=== PATIENT | female | born 1975 | race Caucasian/White ===

== ENCOUNTER 2023-07-05 14:26 | Outpatient (REF) | payer OTHER, SELFPAY ==
[2023-07-05 17:44] LABS: MANUAL DIFF FLAG NO
[2023-07-05 17:48] LABS: Basophils Percent Auto 0.4 % (0-2); Eosinophils Absolute Auto 0.1 X10*3/uL (0.0-0.4); Eosinophils Percent Auto 1.1 % (0-4); Hematocrit 36.9 % (37.0-47.0); Hemoglobin 12.1 g/dl (12.0-16.0); Imm Gran Abs Auto 0.01 X10*3/uL (0.00-0.03); Imm Gran Pct Auto 0.1 % (0.0-0.4); Lymphocytes Absolute Auto 2.5 X10*3/uL (1.2-4.9); Lymphocytes Percent Auto 34.4 % (20-40); Mean Corpuscular HGB Conc 32.8 g/dl (31.0-35.0); Mean Corpuscular Hemoglobin 30.3 pg (27.0-33.0); Mean Corpuscular Volume 92.3 fL (80.0-98.0); Mean Platelet Volume 9.5 fL (9.4-12.3); Monocytes Absolute Auto 0.6 X10*3/uL (0.1-1.2); Monocytes Percent Auto 8.5 % (2-11); Neutrophils Percent Auto 55.5 % (45-73); Platelet Count 250 X10*3/uL (160-400); Red Cell Distribution Width 12.7 % (11.0-16.0); White Blood Count 7.2 X10*3/uL (4.8-10.8)
[2023-07-05 18:02] LABS: Alanine Aminotransferase 14 U/L (0-31); Albumin Level 4.2 g/dL (3.5-5.0); Alkaline Phosphatase 69 U/L (39-117); Anion Gap 15 (12-20); Aspartate Amino Transferase 17 U/L (5-31); Bilirubin Direct < 0.2 mg/dL (0.0-0.5); Bilirubin Total 0.2 mg/dL (0.0-1.0); Blood Urea Nitrogen 9 mg/dL (9-16); Calcium 9.7 mg/dL (8.4-10.2); Carbon Dioxide 24 mmol/L (22-29); Chloride 104 mmol/L (96-108); Estimated Glomerular Filt Rate > 60; Glucose Random 69 mg/dL (60-115); Potassium 3.5 mmol/L (3.3-5.1); Sodium 139 mmol/L (135-145); Total Protein 7.5 g/dL (6.5-8.0)
[2023-07-06 07:31] LABS: HBS Num1 > 1000.00 mIU/mL (0-7.99); Hepatitis B Core Antibody Nonreactive (Nonreactive); ~Hepatitis B Surface Antibody REACTIVE (Nonreactive)
[2023-07-08 20:13] LABS: TS Negative Control Passed; TS Panel A 0; TS Panel B 0; TS Positive Control Passed; TSpotTB Negative (Negative)
[2023-07-09 18:04] LABS: Mumps Virus IgG Antibody <9.00 AU/mL; Rubeola IgG (Measles) <13.50 AU/mL
== END 2023-07-05 14:27 | disposition home or self-care (01) ==
LOC: HO.CHCLDS 14:26
PROVIDERS: Visit Provider Internal Medicine
DX: Z00.00 Encounter for general adult medical examination without abnormal findings (principal); H92.02 Otalgia, left ear
CPT/HCPCS: 36415; 80048; 80076; 85025; 86481; 86704; 86706; 86735; 86762; 86765; 86787

== ENCOUNTER 2023-08-06 11:42 | Outpatient (REF) | payer OTHER, SELFPAY ==
[2023-08-07 12:48] LABS: Rubella IgG Antibody 6.08 Index; Rubeola IgG (Measles) <13.50 AU/mL
== END 2023-08-06 11:43 | disposition home or self-care (01) ==
LOC: HO.CHCLDS 11:42
PROVIDERS: Visit Provider Internal Medicine
DX: Z00.00 Encounter for general adult medical examination without abnormal findings (principal)
CPT/HCPCS: 36415; 86735; 86762; 86765

== ENCOUNTER 2024-07-18 15:48 | Outpatient (REF) | payer OTHER, SELFPAY ==
[2024-07-18 17:55] LABS: MANUAL DIFF FLAG NO
[2024-07-18 17:58] LABS: Basophils Absolute Auto 0.1 X10*3/uL (0.0-0.2); Basophils Percent Auto 0.6 % (0-2); Eosinophils Absolute Auto 0.1 X10*3/uL (0.0-0.4); Eosinophils Percent Auto 0.9 % (0-4); Hematocrit 38.1 % (37.0-47.0); Hemoglobin 12.6 g/dl (12.0-16.0); Imm Gran Abs Auto 0.04 X10*3/uL (0.00-0.03); Imm Gran Pct Auto 0.4 % (0.0-0.4); Lymphocytes Absolute Auto 3.4 X10*3/uL (1.2-4.9); Lymphocytes Percent Auto 30.6 % (20-40); Mean Corpuscular HGB Conc 33.1 g/dl (31.0-35.0); Mean Corpuscular Hemoglobin 30.2 pg (27.0-33.0); Mean Corpuscular Volume 91.4 fL (80.0-98.0); Mean Platelet Volume 9.6 fL (9.4-12.3); Monocytes Absolute Auto 0.7 X10*3/uL (0.1-1.2); Monocytes Percent Auto 6.4 % (2-11); Neutrophils Absolute Auto 6.8 x10*3/uL (2.0-8.3); Neutrophils Percent Auto 61.1 % (45-73); Platelet Count 293 X10*3/uL (160-400); Red Blood Count 4.17 X10*6/uL (4.20-5.50); Red Cell Distribution Width 12.6 % (11.0-16.0); White Blood Count 11.2 X10*3/uL (4.8-10.8)
[2024-07-18 18:31] LABS: Alanine Aminotransferase 15 U/L (0-31); Albumin Level 4.2 g/dL (3.5-5.0); Alkaline Phosphatase 106 U/L (39-117); Anion Gap 13 (12-20); Aspartate Amino Transferase 38 U/L (5-31); Bilirubin Total 0.2 mg/dL (0.0-1.0); Blood Urea Nitrogen 12 mg/dL (9-16); Calcium 9.1 mg/dL (8.4-10.2); Carbon Dioxide 25 mmol/L (22-29); Chloride 106 mmol/L (96-108); Cholesterol 216 mg/dL (<200); Estimated Glomerular Filt Rate > 60; Glucose Random 78 mg/dL (60-115); HDL Cholesterol 55 mg/dL (>40); LDL Cholesterol Calculated 136 mg/dL (<100); Potassium 3.6 mmol/L (3.3-5.1); Sodium 140 mmol/L (135-145); Total Protein 7.7 g/dL (6.5-8.0); Triglycerides 129 mg/dL (<150)
[2024-07-18 18:46] LABS: TSH reflex Free T4 1.81 uIU/mL (0.32-4.0)
[2024-07-19 09:07] LABS: HIV AB/AG Nonreactive (Nonreactive); HIV Num 1 0.05 S/CO (0.00-0.99); ~HepC Num1 0.11 S/CO (0.00-0.79); ~Hepatitis C Antibody Nonreactive (Nonreactive)
[2024-07-21 11:29] LABS: TS Negative Control Passed; TS Panel A 0; TS Panel B 0; TS Positive Control Passed; TSpotTB Negative (Negative)
== END 2024-07-18 15:49 | disposition home or self-care (01) ==
LOC: CF 15:48
PROVIDERS: Visit Provider Internal Medicine
DX: Z00.00 Encounter for general adult medical examination without abnormal findings (principal); Z11.1 Encounter for screening for respiratory tuberculosis; Z13.6 Encounter for screening for cardiovascular disorders
CPT/HCPCS: 36415; 80053; 80061; 84443; 85025; 86481; 86803; 87389

== ENCOUNTER 2024-09-02 13:56 | Outpatient (REF) | payer OTHER, SELFPAY ==
[2024-09-03 11:13] LABS: HPV 16,18/45 See PAP report
== END 2024-09-02 13:57 | disposition home or self-care (01) ==
LOC: HO.HHCLNP 13:56
PROVIDERS: Visit Provider Family Medicine
DX: Z12.4 Encounter for screening for malignant neoplasm of cervix (principal); Z11.51 Encounter for screening for human papillomavirus (HPV)
CPT/HCPCS: 87624; 88175

== ENCOUNTER 2025-07-24 10:20 | Outpatient (REF) | payer OTHER, SELFPAY ==
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
--- OUTSIDE RECORDS SUMMARY | 2025-07-24 12:10 | XMS_ITS | Encounter Summary ---
Author Organization [employer] Address [address] [facility] [address] [place] [address] Care Team Providers Care Senior Test Engineer Name Role Phone Zakiya Kamara MD Primary Care Provider [phone] Encounter Details Date Type Department Care Team (Latest Contact Info) Description 07/24/2025 Travel Social History Tobacco Use Types Packs/Day Years [...] AM EDT documented as of this encounter Functional Status * Over the past 2 weeks, how often have you been bothered by any of the following problems? Question Answer Date of Assessment Author Patient Health Questionnaire -2 Score 4 07/24/2025 9:46 AM Katherine Michaels MA * Little interest or pleasure in doing things Answer Date of Assessment Author More than half the days 07/24/2025 9:46 AM Temitope Crawford MA * Feeling down, depressed, or hopeless Answer Date of Assessment Author More than half the days 07/24/2025 9:46 AM Temitope Crawford MA * Trouble falling or staying asleep, or sleeping too much Answer Date of Assessment Author More than half the days 07/24/2025 9:46 AM Temitope Crawford MA * Feeling tired or having little energy Answer Date of Assessment Author More than half the days 07/24/2025 9:46 AM Temitope Crawford MA * Poor appetite or overeating Answer Date of Assessment Author More than half the days 07/24/2025 9:46 AM Temitope Crawford MA * Feeling bad about yourself - or that you are a failure or have let yourself or your family down Answer Date of Assessment Author More than half the days 07/24/2025 9:46 AM Temitope Crawford MA * Trouble concentrating on things, such [...] Author Not at all 07/24/2025 9:46 AM LUIS ARMANDO [employer] Temitope valencia MA * Thoughts that you would be better off or hurting yourself in some way Answer Date of Assessment Author Not at all 07/24/2025 9:46 AM LUIS ARMANDO [place]-Temitope Navas MA * Patient Health Questionnaire-9 Score Answer Date of Assessment Author 14 07/24/2025 9:46 AM EST [place] Temitope valencia MA * How difficult have these problems [...] MA Trouble relaxing 2 07/24/2025 9:47 AM EST Temitope Nuñez MA Being so restless that it is hard to sit still 2 07/24/2025 9:47 AM Katherine Michaels MA Becoming easily annoyed or irritable 2 07/24/2025 9:47 AM Katherine Michaels MA Feeling afraid as if somethi ng awful might happen 2 07/24/2025 9:47 AM Katherine Michaels MA SONAM-7 Total Score 14 07/24/2025 9:47 AM Temitope Michaels MA documented as of this encounter Plan of Treatment Upcoming Encounters Date Type Department Care Team (Late st Contact Info) Description 08/24/2025 9:00 AM EST Office Visit [facility] MED & PEDS [address] [place] [address] Zakiya Kamara MD [address] [place] [address] documented as of this encounter Visit Diagnoses Not on filedocumented in this encounter Additional Health Concerns Assessment Noted Time PHQ-9 Depression Total Score: 14 025 9:46 AM EST documented as of this encounter Care Teams Senior Test Engineer Relationship Specialty Start Date End Date Zakiya Kamara MD [address] [place] [address] PCP - General Internal Medicine 01/11/21 documented as of this encounter
--- OUTSIDE RECORDS SUMMARY | 2025-07-24 12:10 | XMS_ITS | Clinical Summary ---
Author Organization [employer] Address [address] [facility] 7t [place] [address] Care Team Providers Care Flag Car Driver Name Role Phone Zakiya Kamara MD Primary Care Provider [phone] Allergies No known active allergies Medications clotrimazole (Lotrimin) 1 % cream Apply topically 2 times daily. 60 g 4 Active venlafaxine XR (Effexor XR) 37.5 MG 24 hr capsuleIndicati ons:Anxiety and depression Take 1 capsule (37.5 mg) by mouth Once per day. Do not crush or chew. 30 capsule 11 5 07/24/20 26 Active melatonin 5 MG tabletIndicatio ns:Anxiety and depression Take 1 tablet (5 mg) by mouth if needed at bedtime (for sleep). 30 tablet 5 Active Active Problems Problem Noted Date Diagnosed Date Candidal intertrigo 09/02/2024 Assessment & Plan (09/02/2024 9:39 AM EST): Prescribing Lotrimin for Sx. Relevant Medications Clotrimazole (Lotrimin) 1% cream Cervical cancer screening 09/02/2024 Assessment & Plan (09/02/2024 9:38 AM EST): 49 y.o. here for cervical cancer screening. Will continue monitoring following ASCCP guidelines. Encounters Date Type Department Care Team Description 07/24/2025 9:15 AM EST Office Visit [facility] MED & PEDS [address] [place] [address] Lakisha Santoro CNP Encounter for physical examination (Primary Dx); Encounter for screening mammogram for malignant neoplasm of breast; Anxiety and depression; Screening for colon cancer; Dietary counseling; Exercise counseling; Class 1 obesity due to excess calories without serious comorbidity with body mass index (BMI) of 32.0 to 32.9 in adult 07/24/2025 Travel 07/21/2025 Telephone [facility] MED & PEDS [address] [place] [address] Zakiya Kamara MD chart prep 07/21/2025 Telephone [facility] MED & PEDS [address] [place] [address] Zakiya Kamara MD chart prep 07/16/2025 Patient Outreach [facility] MEDICINE [address] [place], [place] [phone] Zakiya Kamara MD Pre-visit Planning (SDOH screening negative and Tobacco screening negative) 06/11/2025 Telephone [facility] MED & PEDS [address] [place] [address] Zakiya Kamara MD ER Follow-up from Last 3 Months Immunizations Immunization Administration Dates Next Due Hep B, adult 12/17/2017,09/24/2017,08/27/2017 Influenza Injectable Quadriv alant Preservative Free IIV4 MDCK 06/28/2018 Influenza injectable quadriv alent preservative free 07/05/2023,07/13/2021,07/10/2020,2018,07/18/2018 Influenza, Recombinant, inje ctable, preservative free 06/19/2025 Influenza, seasonal, injecta ble, preservative free 07/02/2024,08/16/2017 MMR 08/16/2023,,01/25/2017,2016 Td (adult), unspecified 10/20/2004 Tdap 09/18/2017,06/22/2010 Family History Medical History Relation Name Comments Atrial fibrillation Mother Relation Name Status Comments Mother Social History Tobacco Use Types Packs/Day Years Used Date Smoking Tobacco: Never Smokeless Tobacco: Never Tobacco Cessation:Counseling Given: Not Answered Alcohol Use Standard Drinks/Week Comments Yes 0 [...] Don't know 07/17/2022 10 :18 AM EDT Last Filed Vital Signs Vital Sign Reading [...] Mass Index 32.84 07/24/2025 9:13 AM EST Plan of Treatment Upcoming Encounters Date Type Department Care Team ([facility] st Contact Info) Description 08/24/2025 9:00 AM EST Office Visit [facility] CHC MED & PEDS [address] [place] [address] Zakiya Kamara MD [address] [place] [address] Health Maintenance Due Date Last Done Comments CT Colonography 1973 Colonoscopy 1973 Colorectal Cancer Screening 1973 FIT DNA/Cologuard 1973 FIT 1973 FOBT 1973 Sigmoidoscopy 1973 Family Planning (PISQ) 02/09/1988 Mammogram 2013 Pneumococcal Vaccine: 50+ Years (1 of 1 - PCV) 2023 COVID-19 Vaccine (4 - season) 2025 08/01/2021, 10/18/2020, 09/20/2020 Tobacco Screening 09/02/2025 09/02/2024 Zoster Vaccines (1 of 2) 09/02/2025 Pos tponed from 2023 (Patient Refused) Depression Monitoring 01/21/2026 07/24/2025, 025 SDOH Screening 07/16/2026 07/16/2025 Alcohol/Substance Use Screening 07/24/2026 07/24/2025 Disability Screening 07/24/2026 07/24/2025 DTaP/Tdap/Td Vaccines (3 - Td or Tdap) 09/18/2027 09/18/2017, 06/22/2010, 10/20/2004 Lipid Panel 07/18/2029 07/18/2024 Cervical Cancer Screening 09/02/2029 HPV/Cotest 09/02/2029 09/02/2024, 01/22/2018 Pap Smear 09/02/2029 09/02/2024 RSV Patients and Patients Aged 60 years or older (1 - 1-dose 75+ series) 02/09/2048 Hepatitis B Vaccines Completed 12/17/2017, 09/24/2017, 08/27/2017 HIV Screening Completed 07/18/2024 Hepatitis C Screening Completed 07/18/2024 Influenza Vaccine Completed 06/19/2025, , 07/05/2023, Additional history exists HIB Vaccines Aged Out No longer eligi ble based on patient's age to complete this topic HPV Vaccines Aged Out No longer eligi ble based on patient's age to complete this topic Hepatitis A Vaccines Aged Out No long er eligible based on patient's age to complete this topic IPV Vaccines Aged Out No longer eligi ble based on patient's age to complete this topic Meningococcal B Vaccine Aged Out No l onger eligible based on patient's age to complete this topic Meningococcal Vaccine Aged Out No erik swapna eligible based on patient's age to complete this topic RSV under 20 months Aged Out No longe r eligible based on patient's age to complete this topic Rotavirus Vaccines Aged Out No longer eligible based on patient's age to complete this topic Procedures Procedure Name Priority Date/Time Associated Diagnosis Comments PAP SMEAR Routine 09/02/2024 9:36 AM EST Cervical cancer screening HPV MRNA E6/E7 REFLEX TO HPV 16, 18/45 Routine 09/02/2024 12:00 AM EST LIPID PANEL, STANDARD Routine 07/18/2024 3:49 PM EDT Annual physical exam HEPATITIS C AB W/REFL TO HCV RNA, QN, PCR Routine 07/18/2024 3:45 PM EDT Annual physical exam HIV 1/2 ANTIGEN/ANTIBODY, FOURTH GENERATION W/RFL Routine 07/18/2024 3:45 PM EDT Annual physical exam from Last 3 Months or Most Recently Relevant to Health Maintenance Results * Pap Smear (09/02/2024 9:36 AM EST) Swab Cervix uteri structure / Unknown 09/02/2024 9:36 AM EST 09/03/2024 9:30 AM EST [facility] - 09/08/2024 9:41 AM EST ----- ------- Name: Michelle Garcia Age/Sex: 49/F : 1975 Unit#: [id number] Attend Dr: Montserrat Way MD Re09/02/24 Status: DEP [facility] ----- ------- SPEC : [id number] RECD: 09/03/24 STATUS: HANNA ENGLAND NUM: [id number] GIANCARLO: 09/02/[address] [facility] [address]: Montserrat Way MD ENTERED: 09/03/24-1011 SP TYPE: Pap Smr OT DR: ORDERED: Pap Smear Interpretation Satisfactory for evaluation. Negative for intraepithelial lesion or malignancy. No endocervical cells seen. HPV High Risk: Negative HPV Genotyping 16: Negative HPV Genotyping 18: Negative Clinical Information LMP: Postmenopausal Previous PAP test: 2018, WNL Material Received ThinPrep-Cervical ----- ------- Signed (signature on file) ARTUR Cardoza (ASCP) 09/08/24 0941 ----- ------- END OF REPORT Montserrat Way MD LAB CYTOLOGY ORDERABLES Final Result [facility] [address] [place], [place] [phone] * HPV mRNA E6/E7 w/Reflex to HPV Genotypes 16, 18/45 (09/02/2024 12:00 AM EST) Historical Provider LAB CYTOLOGY ORDERABLES F inal Result * (ABNORMAL) Lipid Panel, Standard (07/18/2024 3:49 PM EDT) Triglycerides 129 <150 mg/dL [facility] Comment:Desirable Triglyceri de: less than 150 mg/dLBorderline High Triglyceride 150-199 mg/dLHigh Triglyceride: 200-499 mg/dLVery High Triglyceride: greater than or equal to 5OO mg/dL Cholesterol 216(H) <200 mg/dL [facility] Comment:Desirable Cholestero l: less than 200 mg/dLBorderline High Cholesterol: 200-239 mg/dLHigh Cholesterol: greater than 239 mg/dL LDL Cholesterol Calculated 136(H) <100 mg/dL [facility] Comment:Desirable LDL: less than 100 mg/dLNear Optimal/Above Optimal LDL: 110- 129 mg/dLBorderline High LDL: 130-159 mg/dLHigh LDL: 160-189 mg/dLVery High LDL: greater than or equal to 190 mg/dL HDL Cholesterol 55 >40 mg/dL [facility] Comment:Desirable HDL: great er than 40 mg/dL Note: This HDL assay may give artificially low results in patients with liver disease. Blood Venous blood specimen / Unknown 07/18/2024 3:49 PM EDT 07/18/2024 5:52 PM EDT us Zakiya Kamara MD LAB BLOOD ORDERABLES Final Result Performing Organization Address [facility]/ZIP Co de Phone Number [facility] [address] [place] [address] [phone] * Hepatitis C Antibody with Reflex to HCV, RNA, Quantitative, Real-Time PCR (07/18/2024 3:45 PM EDT) Hepatitis C Antibody Nonreactive Nonreactive [facility] Comment:Antibodies to HCV no t detected; does not exclude early acuteHCV infection. Blood Venous blood specimen / Unknown 07/18/2024 3:45 PM EDT 07/18/2024 5:52 PM EDT Zakiya Kamara MD LAB BLOOD ORDERABLES Final Result Performing Organization Address [facility] Co de Phone Number [facility] [address] [place] [phone] * HIV-1/2 Antigen and Antibodies, Fourth Generation, with Reflexes (07/18/2024 3:45 PM EDT) Pathologist [facility] HIV AB/AG Nonreactive Nonreactive [facility] Comment:HIV-1 p24 Ag and/or HIV-1/HIV-2 Ab not detected.A test result that is nonreactive does not exclude thepossibility of exposure to or infection with HIV-1 and/orHIV-2. Nonreactive results in this assay for individualswith prior exposure to HIV-1 and/or HIV-2 may be due toantigen and antibody levels that are below the limit ofdetection of this assay.The [facility] HIV Ag/Ab Combo assay result andsupplemental assay results should be interpreted inconjunction with the patient's clinical presentation,history and other laboratory results. If the results areinconsistent with clinical evidence, additional testing issuggested to confirm the result. Blood Venous blood specimen / Unknown 07/18/2024 3:45 PM EDT 07/18/2024 5:52 PM EDT Zakiya Kamara MD LAB BLOOD ORDERABLES Final Result [facility] [address] [place] [phone] [phone] from Last 3 Months or Most Recently Relevant to Health Maintenance Insurance [facility] , [address] [place] [address] Care Teams Flag Car Driver Relationship Specialty Start Date End Date Zakiya Kamara MD [address] [place] [phone] PCP - General Internal Medicine 01/11/21
--- OUTSIDE RECORDS SUMMARY | 2025-07-24 12:10 | XMS_ITS | Encounter Summary ---
Author Organization [employer] Address [address] [facility] 7 [place] [address] Care Team Providers Care Commercial Airplane Pilot Name Role Phone Zakiya Kamara MD Primary Care Provider [phone] Reason for Visit * Reason Onset Date Comments chart prep 07/21/2025 Encounter Details Date Type Department Care Team ([facility] Contact Info) Description 07/21/2025 Telephone [facility] CHC MED & PEDS [address] [place] [address] Zakiya Kamara MD [address] [place] [address] chart prep Social History Tobacco Use Types Packs/Day Years Used Date Smoking Tobacco: Never Smokeless Tobacco: Never Alcohol Use Standard Drinks/Week Comments Yes 0 (1 standard drink = 0.6 oz pur e alcohol) Social/Irregular/Holidays Depression Answer Date Recorded Patient Health Questionnaire-9 Score 1 07/18/2024 Patient Health Questionnaire-9 Score 1 07/18/2024 Last PHQ-9: Questionnaire Data Not on file 1 09/17/2023 Housing Stability Answer Date Recorded What is [...] Answer Date Recorded Patient Health Questionnaire-2 Score 0 07/18/2024 Internet Access Answer Date Recorded Internet Access Q1 Yes 07/16/2025 Internet Access Q2 Not on file 07/16/2025 Comments Unknown Sex and Gender Information Value Date Recorded Sex Assigned at Female 07/17/2022 10:18 AM EDT Legal Sex Female 10:18 AM EDT Gender Identity Female 07/17/2022 10:18 AM EDT Sexual Orientation Don't know 07/17/2022 10 :18 AM EDT documented as of this encounter Miscellaneous Notes * Telephone Encounter - Temitope Harper [place] - 07/21/2025 3:22 PM EST Chart Prep Labs: not applicable Images: not applicable Referrals: not applicable Vaccines due: Covid, Flu, and PCV20 Screenings: colonoscopy, mammogram, and LMP Overdue care gaps: SBIRT, PHQ-9, SONAM-7, and Disability screen documented in this encounter Plan of Treatment Upcoming Encounters Date Type Department Care Team ([facility] Contact Info) Description 08/24/2025 9:00 AM EST Office Visit [facility] MED & PEDS [address] [place] [address] Zakiya Kamara MD [address] [place] [address] documented as of this encounter Visit Diagnoses Not on filedocumented in this encounter Additional Health Concerns Assessment Noted Time PHQ-9 Depression Total Score: 1 07/18/20 24 3:52 PM EDT documented as of this encounter Care Teams Commercial Airplane Pilot Relationship Specialty Start Date End Date Zakiya Kamara MD [address] [place] [address] PCP - General Internal Medicine 01/11/21 documented as of this encounter
--- OUTSIDE RECORDS SUMMARY | 2025-07-24 12:10 | XMS_ITS | Encounter Summary ---
Author Organization [employer] Address [address] [facility] 7t [place] [address] Care Team Providers Care Commercial Truck Driver Name Role Phone Zakiya Kamara MD Primary Care Provider [phone] Encounter Details Date Type Department Care Team ([facility] st Contact Info) Description 07/05/2023 Orders Only [facility] CHC MED & PEDS [address] [place], [place] [phone] Zakiya Kamara MD [address] [place], [place] [phone] Social History Tobacco Use Types Packs/Day Years Used Date Smoking Tobacco: Never Smokeless Tobacco: Never Depression Answer Date Recorded Patient Health Questionnaire-9 Score 2 07/05/2023 Patient Health Questionnaire-9 Score 2 07/05/2023 Last PHQ-9: Questionnaire Data Not on file 1 Housing Stability Answer Date Recorded What is your housing situation today? I have jaylenge villalta 07/05/[address] you li ve. Do you have problems with any of the following? None of the above 07/05/2023 Food Insecurity Answer Date Recorded Within the past 12 months, y ou worried that your food would run out before you got money to buy more: Never True 07/05/2023 Within the past 12 months,th e food you bought just didn't last and you didn't have enough money to get more: Never True Transportation Answer Date Recorded In the past 12 months, has l ack of transportation kept you from medical appts, meetings, work or from getting things needed for daily living? No 07/05/2023 Utilities Answer Date Recorded In the past 12 months, has t he electric, gas, oil or water company threatened to shut off services in your home? No 07/05/2023 Depression Answer Date Recorded Patient Health Questionnaire-2 Score 0 07/05/2023 Comments Unknown Sex and Gender Information Value [...] Answer Date of Assessment Author Patient Health Questionnaire-2 Score 0 06/17 2:16 PM EDT Tanya Scales MA * If you checked off any problems on this questionnaire so far, Question Answer Date of Assessment Author How difficult have these problems made it for you to do your work, take care of things at home, or get along with other people? Not difficult at all 07/05/2023 2:16 PM MOT Tanya Scales MA * Over the past 2 weeks, how often have you been bothered by any of the following problems? Question Answer Date of Assessment Author Little interest or pleasure in doing things Not at all 07/05/2023 2:16 PM Tanya Jacob MA Feeling down, depressed, or hopeless Not at all 07/05/2023 2:16 PM MOT Tanya Scales MA Trouble falling or staying asleep, or sleeping too much Several days 07/05/2023 2:16 PM MOT Faviola Scales MA Feeling tired or having mariam le energy Several days 07/05/2023 2:16 PM Tanya Jacob MA Poor appetite or overeating Not at all 07/05/2023 2: 16 PM Tanya Jacob MA Feeling bad about yourself - or that you are a failure or have let yourself or your family down Not at all 07/05/2023 2:16 PM MOT Tanya Moses [place] Trouble concentrating on thi ngs, such as reading the newspaper or watching television Not at all 07/05/2023 2:16 PM EDT Tanya Scales MA Moving or speaking so slowly that other people could have noticed? Or the opposite - being so fidgety or restless that you have been moving around a lot more than usual. Not at all 07/05/2023 2:16 PM EDT Tanya Scales MA Thoughts that you would be better off or hurting yourself in some way Not at all 07/05/2023 2:16 PM EDT Tanya Scales MA Patient Health Questionnaire -9 Score 2 07/05/2023 2:16 PM EDT Tanya Scales MA documented as of this encounter Plan of Treatment Upcoming Encounters Date Type Department Care Team ([facility] st Contact Info) Description 08/24/2025 9:00 AM EST Office Visit [facility] MED & PEDS [address] [place] [address] Zakiya Kamara MD [address] [place] [address] documented as of this encounter Procedures Procedure Name Priority Date/Time Associated Diagnosis Comments MEASLES, MUMPS, AND RUBELLA (MMR) AB (IGG) PANEL, IMMUNE STATUS Routine 08/06/2023 11:44 AM EST documented in this encounter Results * (ABNORMAL) Measles, Mumps, and Rubella (MMR) Antibodies??(IgG) Panel, Immune Status (08/06/2023 11:44 AM EST) Mumps Virus IgG Antibody 11.80 AU/mL [facility] Comment:AU/mL Interpretation ------- <9.00 Not consistent with immunity9.00-10.99 Equivocal>10.99 Consistent with immunityThe presence of mumps IgG antibody suggests immunizationor past or current infection with mumps virus. Rubella IgG Antibody 6.08 Index [facility] Comment:Index Interpretation ----- <0.90 Not consistent with immunity 0.90-0.99 Equivocal > or = 1.00 Consistent with immunityThe presence of rubella IgG antibody suggestsimmunization or past or current infection withrubella virus.THIS TEST WAS PERFORMED AT:[email or web address] [place] [phone] IRWIN MD Rubeola IgG (Measles) <13.50(A ) AU/mL [facility] Comment:AU/mL Interpretation ----- <13.50 Not consistent with xlleqvlx80.50-16.49 Equivocal>16.49 Consistent with immunityThe presence of measles IgG suggests immunization orpast or current infection with measles virus.For additional information, please refer [email or web address].[employer]/faq/LXW498(This link is being provided for informational/educational purposes only.) 08/06/2023 11:4 4 AM EST 08/06/2023 2:37 PM EST Zakiya Kamara MD LAB BLOOD ORDERABLES Final Result [facility] [address] [place] [address] [phone] documented in this encounter Visit Diagnoses Not on filedocumented in this encounter Additional Health Concerns Assessment Noted Time PHQ-9 Depression Total Score: 2 07/05/20 23 2:16 PM EDT documented as of this encounter Care Teams Commercial Truck Driver Relationship Specialty Start Date End Date Zakiya Kamara MD [address] [place] [phone] PCP - General Internal Medicine 01/11/21 documented as of this encounter
--- OUTSIDE RECORDS SUMMARY | 2025-07-24 12:10 | XMS_ITS | Encounter Summary ---
Author Organization [employer] Address [address] [facility] 7 [place] [address] Care Team Providers Care Delivery Of Shopping News Name Role Phone Zakiya Kamara MD Primary Care Provider [phone] Reason for Visit * Reason Onset Date Comments Created in Error 07/21/2024 Encounter Details Date Type Department Care Team ([facility] st Contact Info) Description 07/21/2024 Telephone [facility] MEDICINE [address] [place] [address] Zakiya Kamara MD [address] [place] [address] Created in Error Social History Tobacco Use Types Packs/Day Years Used Date Smoking Tobacco: Never Smokeless Tobacco: Never Depression Answer Date Recorded Patient Health Questionnaire-9 Score 1 07/18/2024 Patient Health Questionnaire-9 Score 1 07/18/2024 Last PHQ-9: Questionnaire Data Not on file 1 09/17/2023 Housing Stability Answer Date Recorded What is your housing situation today? I have jaylen villalta 07/11/[address] you li ve. Do you have problems with any of the following? Inadequate heat 07/11/2024 Food Insecurity Answer Date Recorded Within the past 12 months, y ou worried that your food would run out before you got money to buy more: Never True 07/11/2024 Within the past 12 months,th e food you bought just didn't last and you didn't have enough money to get more: Never True Transportation Answer Date Recorded In the past 12 months, has l ack of transportation kept you from medical appts, meetings, work or from getting things needed for daily living? No 07/11/2024 Utilities Answer Date Recorded In the past 12 months, has t he electric, gas, oil or water company threatened to shut off services in your home? No 07/11/2024 Depression Answer Date Recorded Patient Health Questionnaire-2 Score 0 07/18/2024 Internet Access Answer Date Recorded Internet Access Q1 Yes 07/11/2024 Internet Access Q2 Not on file 07/11/2024 Comments Unknown Sex and Gender Information Value Date Recorded Sex Assigned at Female 07/17/2022 10:18 AM EDT Legal Sex Female 10:18 AM EDT Gender Identity Female 07/17/2022 10:18 AM EDT Sexual Orientation Don't know 07/17/2022 10 :18 AM EDT documented as of this encounter Plan of Treatment Upcoming Encounters Date Type Department Care Team ([facility] st Contact Info) Description 08/24/2025 9:00 AM EST Office Visit [facility] MED & PEDS [address] [place] [address] Zakiya Kamara MD [address] [place] [address] documented as of this encounter Visit Diagnoses Not on filedocumented in this encounter Additional Health Concerns Assessment Noted Time PHQ-9 Depression Total Score: 1 07/18/20 24 3:52 PM EDT documented as of this encounter Care Teams Delivery Of Shopping News Relationship Specialty Start Date End Date Zakiya Kamara MD [address] [place] [address] PCP - General Internal Medicine 01/11/21 documented as of this encounter
--- OUTSIDE RECORDS SUMMARY | 2025-07-24 12:10 | XMS_ITS | Encounter Summary ---
Author Organization [employer] Address [address] [facility] 7 [place] [address] Care Team Providers Care Airport Control Operator Name Role Phone Zakiya Kamara MD Primary Care Provider [phone] Reason for Visit * Reason Onset Date Comments MMR 08/03/2023 Encounter Details Date Type Department Care Team ([facility] st Contact Info) Description 08/03/2023 Telephone [facility] MED & PEDS [address] [place] [address] Zakiya Kamara MD [address] [place] [address] MMR Social History Tobacco Use Types Packs/Day Years Used Date Smoking Tobacco: Never Smokeless Tobacco: Never Depression Answer Date Recorded Patient Health Questionnaire-9 Score 2 07/05/2023 Patient Health Questionnaire-9 Score 2 07/05/2023 Last PHQ-9: Questionnaire Data Not on file 1 Housing Stability Answer Date Recorded What is your housing situation today? I have jaylen villalta 07/05/[address] you [...] encounter Miscellaneous Notes * Telephone Encounter - Mere Nolasco RN - 08/03/2023 4:08 PM EST Placed call to pt regarding message below. Pt states college is requesting pt to receive second dose of MMR. Pt informed that pt just needed a booster as titers were low and per CDC recommendations one dose is required. 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 Pt informed to be sure pt get MMR titers done to confirm immunity and given a copy to give to the school. Pt agrees with plan and will come in on Sunday to our lab. * Telephone Encounter - Billy Guzmán - 08/03/2023 3:10 PM EST Tc from pt requesting an appt for second dose of MMR. Please contact pt at [phone] documented in this encounter Plan of Treatment Upcoming Encounters Date Type Department Care Team (Late st Contact Info) Description 08/24/2025 9:00 AM EST Office Visit [facility] [address] [place] [address] Zakiya Kamara MD [address] [place] [address] Scheduled Orders Name Type Priority Associated Diagnoses Orde r Schedule Measles, Mumps, and Rubella (MMR) Antibodies (IgG) Panel, Immune Status Lab Routine Annual physical exam Expected: 08/03/2023 (Approximate), Expires: 08/03/2024 documented as of this encounter Visit Diagnoses Diagnosis Annual physical exam Routine general medical examination at a health care facility documented in this encounter Additional Health Concerns Assessment Noted Time PHQ-9 Depression Total Score: 2 07/05/20 23 2:16 PM EDT documented as of this encounter Care Teams Airport Control Operator Relationship Specialty Start Date End Date Zakyia Kamara MD [address] [place] [address] PCP - General Internal Medicine 01/11/21 documented as of this encounter
--- OUTSIDE RECORDS SUMMARY | 2025-07-24 12:10 | XMS_ITS | Encounter Summary ---
Author Organization [employer] Address [address] [facility] 7t [place] [address] Care Team Providers Care Conveyor Man Name Role Phone Zakiya Kamara MD Primary Care Provider [phone] Encounter Details Date Type Department Care Team ([facility] st Contact Info) Description 08/16/2023 Orders Only [facility] MED & PEDS [address] [place], [place] [id number] Zakiya Kamara MD [address] [place], [place] [id number] Social History Tobacco Use Types Packs/Day Years [...] Description 08/24/2025 9:00 AM EST Office Visit [facility] MED [facility] PEDS [address] [place] [address] Zakiya Kamara MD [address] [place] [address] documented as of this encounter Visit Diagnoses Not on filedocumented in this encounter Additional Health Concerns Assessment Noted Time PHQ-9 Depression Total Score: 2 07/05/20 23 2:16 PM EDT documented as of this encounter Care Teams Conveyor Man Relationship Specialty Start Date End Date Zakiya Kamara MD [address] [place] [address] PCP - General Internal Medicine 01/11/21 documented as of this encounter
--- OUTSIDE RECORDS SUMMARY | 2025-07-24 12:10 | XMS_ITS | Encounter Summary ---
Author Organization [employer] Address [address] [facility] 7 [place] [address] Care Team Providers Care Value Stream Leader Name Role Phone Zakiya Kamara MD Primary Care Provider [phone] Reason for Visit * Reason Onset Date Comments chart prep 07/21/2025 Encounter Details Date Type Department Care Team ([facility] Contact Info) Description 07/21/2025 Telephone [facility] MED & PEDS [address] [place] [address] Zakiya Kamara MD [address] [place] [address] chart prep Social History Tobacco Use Types [...] Upcoming Encounters Date Type Department Care Team ([facility] st Contact Info) Description 08/24/2025 9:00 AM EST Office Visit [facility] MED [facility] PEDS [address] [place] [address] Zakiya Kamara MD [address] [place] [address] documented as of this encounter Visit Diagnoses Not on filedocumented in this encounter Additional Health Concerns Assessment Noted Time PHQ-9 Depression Total Score: 1 07/18/20 24 3:52 PM EDT documented as of this encounter Care Teams Value Stream Leader Relationship Specialty Start Date End Date Zakiya Kamara MD [address] [place] [address] PCP - General Internal Medicine 01/11/21 documented as of this encounter
--- OUTSIDE RECORDS SUMMARY | 2025-07-24 12:10 | XMS_ITS | Encounter Summary ---
Author Organization [employer] Address [address] [facility] 7 [place] [address] Care Team Providers Care Audio Director Name Role Phone Zakiya Kamara MD Primary Care Provider [phone] Reason for Visit * Reason Onset Date Comments Appointment Request 08/05/2024 Encounter Details Date Type Department Care Team ([facility] Contact Info) Description 08/05/2024 Telephone [facility] MED & PEDS [address] [place] [address] Zakiya Kamara MD [address] [place] [address] Appointment Request Social History Tobacco Use Types Packs/Day Years [...] encounter Miscellaneous Notes * Telephone Encounter - Marycruz Briggs - 08/05/2024 9:13 AM EST Tc from pt requesting to r/s today pap appt . States is currently at school. documented in this encounter Plan of Treatment Upcoming Encounters Date Type Department Care Team (Late st Contact Info) Description 08/24/2025 9:00 AM EST Office Visit [facility] MED [facility] PEDS [address] [place] [address] Zakiya Kamara MD [address] [place] [address] documented as of this encounter Visit Diagnoses Not on filedocumented in this encounter Additional Health Concerns Assessment Noted Time PHQ-9 Depression Total Score: 1 07/18/20 24 3:52 PM EDT documented as of this encounter Care Teams Audio Director Relationship Specialty Start Date End Date Zakiya Kamara MD [address] [place] [address] PCP - General Internal Medicine 01/11/21 documented as of this encounter
--- OUTSIDE RECORDS SUMMARY | 2025-07-24 12:11 | XMS_ITS | Encounter Summary ---
Author Organization [employer] Address [address] [place] [address] 7 [place] [address] Care Team Providers Care Hospice Home Health Aide Name Role Phone Zakiya Kamara MD Primary Care Provider [phone] Reason for Referral * Imaging (Routine) - Closed Specialty Diagnoses / Procedures Referred By Alyssa aleman Referred To Contact Radiology Diagnoses Transaminitis Procedures US Abdomen Complete Zakiya Kamara MD [address] [place] [address] Phone: tel: fax: [facility] Referral ID Status Reason Start Date Expiration Date Visits Re quested Visits Authorized [id number] Closed 07/22/2024 07/22/2025 1 1 Encounter Details Date Type Department Care Team ([facility] st Contact Info) Description 07/22/2024 Orders Only [facility] MED & PEDS [address] [place] [address] Zakiya Kamara MD [address] [place] [address] Transaminitis (Primary Dx); Other elevated white blood cell (WBC) count Social History Tobacco Use Types Packs/Day Years [...] Upcoming Encounters Date Type Department Care Team ([facility] Contact Info) Description 08/24/2025 9:00 AM EST Office Visit [facility] MED & PEDS [address] [place] [address] Zakiya Kamara MD [address] [place] [address] Scheduled Orders Name Type Priority Associated Diagnoses Orde r Schedule US Abdomen Complete Imaging Routine Transaminitis Expected: 07/22/2024, Expires: 07/22/2025 Hepatitis C Antibody with Reflex to HCV, RNA, Quantitative, Real-Time PCR Lab Routine Transaminitis Expected: 07/22/2024, Expires: 07/22/2025 Hepatitis B Surface Antibody, Qualitative Lab Routine Transaminitis Expected: 07/22/2024 (Approximate), Expires: 07/22/2025 CBC auto differential Lab Routine Other elevated white blood cell (WBC) count Expected: 07/22/2024 (Approximate), Expires: 07/22/2025 documented as of this encounter Visit Diagnoses Diagnosis Transaminitis- Primary Nonspecific elevation of levels of transaminase or lactic acid dehydrogenase (LDH) Other elevated white blood cell (WBC) count documented in this encounter Additional Health Concerns Assessment Noted Time PHQ-9 Depression Total Score: 1 07/18/20 24 3:52 PM EDT documented as of this encounter Care Teams Hospice Home Health Aide Relationship Specialty Start Date End Date Zakiya Kamara MD [address] [place] [address] PCP - General Internal Medicine 01/11/21 documented as of this encounter
--- OUTSIDE RECORDS SUMMARY | 2025-07-24 12:11 | XMS_ITS | Encounter Summary ---
Author Organization [employer] Address [address] [facility] 7t [place] [address] Care Team Providers Care Type Bar And Segment Assembler Name Role Phone Zakiya Kamara MD Primary Care Provider [phone] Encounter Details Date Type Department Care Team (Late st Contact Info) Description 01/13/2025 Orders Only [facility] MED & PEDS [address] [place] [address] Angeli Palacios Social History Tobacco Use Types Packs/Day Years [...] Upcoming Encounters Date Type Department Care Team ([facility] st Contact Info) Description 08/24/2025 9:00 AM EST Office Visit [facility] MED & PEDS [address] [place] [address] Zakiya Kamara MD [address] [place] [address] documented as of this encounter Procedures Procedure Name Priority Date/Time Associated Diagnosis Comments HPV MRNA E6/E7 REFLEX TO HPV 16, 18/45 Routine 09/02/2024 12:00 AM EST documented in this encounter Results * HPV mRNA E6/E7 w/Reflex to HPV Genotypes 16, 18/45 (09/02/2024 12:00 AM EST) us Historical Provider LAB CYTOLOGY ORDERABLES F inal Result documented in this encounter Visit Diagnoses Not on filedocumented in this encounter Additional Health Concerns Assessment Noted Time PHQ-9 Depression Total Score: 1 07/18/20 24 3:52 PM EDT documented as of this encounter Care Teams Type Bar And Segment Assembler Relationship Specialty Start Date End Date Zakiya Kamara MD [address] [place] [address] PCP - General Internal Medicine 01/11/21 documented as of this encounter
[2025-07-24 14:09] LABS: MANUAL DIFF FLAG NO
[2025-07-24 14:17] LABS: Hematocrit 40.8 % (37.0-47.0); Hemoglobin 13.0 g/dl (12.0-16.0); Imm Gran Abs Auto 0.03 X10*3/uL (0.00-0.03); Imm Gran Pct Auto 0.3 % (0.0-0.4); Lymphocytes Absolute Auto 2.9 X10*3/uL (1.2-4.9); Mean Corpuscular HGB Conc 31.9 g/dl (31.0-35.0); Mean Corpuscular Hemoglobin 29.5 pg (27.0-33.0); Mean Corpuscular Volume 92.7 fL (80.0-98.0); NRBC Abs Auto 0.000 X10*3/uL (0.0-0.012); NRBC Pct Auto 0.0 /100WBC (0.0-0.2); Platelet Count 331 X10*3/uL (160-400); Red Blood Count 4.40 X10*6/uL (4.20-5.50); White Blood Count 9.2 X10*3/uL (4.8-10.8)
[2025-07-24 14:31] LABS: Anion Gap 11 (12-20); Blood Urea Nitrogen 16 mg/dL (9-16); Calcium 9.7 mg/dL (8.4-10.2); Carbon Dioxide 28 mmol/L (22-29); Chloride 106 mmol/L (96-108); Cholesterol 207 mg/dL (<200); Estimated Glomerular Filt Rate > 60; HDL Cholesterol 54 mg/dL (>40); Potassium 4.5 mmol/L (3.3-5.1); Sodium 140 mmol/L (135-145); Triglycerides 154 mg/dL (<150)
[2025-07-27 09:19] LABS: TS Negative Control Passed; TS Panel A 0; TS Panel B 0; TS Positive Control Passed; TSpotTB Negative (Negative)
== END 2025-07-24 10:21 | disposition home or self-care (01) ==
LOC: HO.CHCLDS 10:20
DX: Z00.00 Encounter for general adult medical examination without abnormal findings (principal); Z11.1 Encounter for screening for respiratory tuberculosis; Z13.6 Encounter for screening for cardiovascular disorders
CPT/HCPCS: 36415; 80048; 80061; 85025; 86481